=== PATIENT | female | born 1990 | race Caucasian/White ===

== ENCOUNTER 2020-01-17 17:01 | Emergency (ER) | payer OTHER ==
[~2020-01-17] VITALS: Ht 162.6 cm; Wt 57.6 kg
[2020-01-17 17:15] VITALS: BP 120/84
--- NOTE | 2020-01-17 18:19 | NUR ---
Patient discharged to home in stable condition. Written and verbal after care instructions given. Patient verbalizes understanding of instruction.
== END 2020-01-17 18:19 | disposition home or self-care (01) ==
LOC: ER 17:11
DX: F41.9 Anxiety disorder, unspecified (principal); R06.03 Acute respiratory distress; Z98.890 Other specified postprocedural states
CPT/HCPCS: 71045-TC